=== PATIENT | female | born 1950 | race Caucasian/White ===

== ENCOUNTER → 2025-01-01 | Outpatient (CLI) | payer MEDICARE, OTHER, SELFPAY ==
--- NOTE | 2025-01-01 11:41 | RAD_ITS ---
PROCEDURE: FOOT MIN 3 VIEWS 01/01/2025 REASON FOR EXAM: FOOT SWELING TECHNIQUE: FOOT MIN 3 VIEWS COMPARISON: None FINDINGS: Bones: No visible fracture. No suspicious bone lesion. Plantar spur. Joints: Normal alignment. Soft tissues: Soft tissue swelling. Other: RAD/Foot min 3 Views IMPRESSION: Soft tissue swelling. Plantar spur. Reading Location: [place] [id number]
--- NOTE | 2025-01-01 11:41 | RAD_ITS ---
PROCEDURE: FOOT MIN 3 VIEWS 01/01/2025 REASON FOR EXAM: FOOT SWELING TECHNIQUE: FOOT MIN 3 VIEWS COMPARISON: None FINDINGS: Bones: No visible fracture. No suspicious bone lesion. Plantar spur. Joints: Normal alignment. Soft tissues: Soft tissue swelling. Other: RAD/Foot min 3 Views IMPRESSION: Soft tissue swelling. Plantar spur. Reading Location: [place] [id number]
== END | disposition home or self-care (01) ==
LOC: MTRAD 11:36
PROVIDERS: Referring Provider Physician Assistant; Visit Provider Physician Assistant
DX: M79.89 Other specified soft tissue disorders (principal)
CPT/HCPCS: 73630